=== PATIENT | male | born 1985 | race Caucasian/White ===

== ENCOUNTER 2021-01-26 04:34 | Emergency (ER) | payer MEDICAID ==
[2021-01-26] MEDS ORDERED: Tamsulosin 0.4 MG Cap.ER PO ONE (05:01)
[2021-01-26] MEDS ORDERED: HYDROmorphone 1 MG/ML Syringe IVPUSH ONE (05:01)
[2021-01-26] MEDS ORDERED: Ondansetron 4 MG/2 ML SDV IVPUSH ONE (05:01)
[2021-01-26] MEDS ORDERED: Ketorolac 30 MG/ML SDV IVPUSH STA (05:01)
--- NOTE | 2021-01-26 05:08 | EDM.PDOC ---
ED HPI GENERAL MEDICAL PROBLEM - General Chief Complaint: Genitourinary Problem Stated Complaint: BACK PAIN/ STOMACH PAIN Time Seen by Provider: 01/26/21 04:49 Source of Information: Reports: Patient History Limitations: Reports: No Limitations - History of Present Illness INITIAL COMMENTS - FREE TEXT/NARRATIVE: Mr. Gray is a very pleasant 35-year-old gentleman who now presents the ED stating that he was woken with sudden-onset lower right flank pain, radiating to his right lower quadrant, around 03:00 this morning. He describes the pain as sharp in character. He states that it is constant. He states that he feels a bit better sitting up, otherwise, he has not identified any modifiers. He also reports difficulty urinating, in that his urine output is low, however, he denies having gross hematuria, dysuria, or urinary frequency. No prior similar symptoms. The patient did not take any [id number] or home remedies prior to coming to the ED. Here in the ED, the patient's initial BP is found to be slightly elevated at 134/100, with bradycardia of 51 bpm. He is afebrile, saturating 97% on room air. He appears to be uncomfortable, but is in no acute distress. Prior to this morning, the patient denies having a recent fever, chills, sore throat, ear pain, nasal or sinus congestion, cough, dyspnea, chest pain, palpitations, nausea, vomiting, constipation, diarrhea, abdominal pain, urinary symptoms, recent weight gain or weight loss, recent bloody bowel movements or black bowel movements, recent joint aches, headaches, or rashes. The patient does not have a PCP. He has not received a COVID vaccination. Right Lower Back Pain Score (Numeric/FACES): 7 - Related Data Allergies Allergy/AdvReac Type Severity Reaction Status Date / Time No Known Allergies Allergy Verified 01/26/21 04:43 Home Meds: Home Meds Acetaminophen/oxyCODONE [Percocet 325-5 MG] 1 - 2 tab PO Q6H PRN #20 tab 01/26/21 [Rx] Ondansetron [Zofran ODT] 1 tab PO Q8H PRN #10 tab.dis 01/26/21 [Rx] Tamsulosin [Flomax] 1 cap PO QAM PRN #10 cap.er 01/26/21 [Rx] Past Medical History - Past Surgical History HEENT Surgical History: Reports: Oral Surgery (dental extractions) Social & Family History - Tobacco Use Tobacco Use Status *Q: Never Tobacco User - Alcohol Use Alcohol Use History: Yes Alcohol Use Frequency: Socially - Recreational Drug Use Recreational Drug Use: No - Living Situation & Occupation Living situation: Reports: , with Spouse, with Family (2 kids) Occupation: Employed (Construction) ED ROS GENERAL - Review of Systems Review Of Systems: Comprehensive ROS is negative, except as noted in HPI. ED EXAM, RENAL/ - Physical Exam Exam: See Below Exam Limited By: No Limitations General Appearance: Alert, WD/WN, Mild Distress (appears uncomfortable) Eye Exam: Bilateral Eye: EOMI, Normal Inspection Ears: Normal External Exam, Hearing Grossly Normal Nose: Normal Inspection Throat/Mouth: Normal Inspection, Normal Lips, Normal Voice, No Airway Compromise Head: Atraumatic, Normocephalic Neck: Normal Inspection, Full Range of Motion Respiratory/Chest: No Respiratory Distress, Lungs Clear, Normal Breath Sounds, No Accessory Muscle Use Cardiovascular: Normal Peripheral Pulses, Regular Rate, Rhythm, No Edema, No Gallop, No JVD, No Murmur, No Rub GI/Abdominal: Normal Bowel Sounds, Soft, Non-Tender (including the RLQ), No Organomegaly, No Distention, No Abnormal Bruit, No Mass Back Exam: Normal Inspection, Full Range of Motion. No: CVA Tenderness (L), CVA Tenderness (R) Extremities: Normal Inspection, Normal Range of Motion, No Pedal Edema, Normal Capillary Refill Neurological: Alert, Oriented, Normal Cognition, No Motor/Sensory Deficits Psychiatric: Normal Affect Skin Exam: Warm, Dry, Intact, Normal Color, No Rash Course - Vital Signs Last Recorded V/S: Last Vital Signs Temp 35.2 C L 01/26/21 04:44 Pulse 51 L 01/26/21 04:44 Resp 15 01/26/21 04:44 BP 134/100 H 01/26/21 04:44 Pulse Ox 97 01/26/21 04:44 - Orders/Labs/Meds Orders: Active Orders 24 hr Category Date Time Status Strain Urine [RC] ASDIRECTED Care 01/26/21 05:02 Active Strain Urine [RC] ASDIRECTED Care 01/26/21 06:58 Active Abdomen Pelvis wo Cont [CT] Stat Exams 01/26/21 05:00 Taken Sodium Chloride 0.9% [Normal Saline] 1,000 ml Med 01/26/21 05:15 Active IV ASDIRECTED Medication Orders Sodium Chloride (Normal Saline) 1,000 mls @ 150 mls/hr IV ASDIRECTED CHERELLE Last Admin: 01/26/21 05:08 Dose: 150 mls/hr Documented by: MEAGHAN Labs: Laboratory Tests 01/26/21 01/26/21 Range/Units 04:53 05:27 Urine Color Yellow (Yellow) Urine Appearance Clear (Clear) Urine pH 6.0 (5.0-8.0) Ur Specific [place] > or = 1.030 (1.005-1.030) Urine Protein Trace H (Negative) Urine Glucose (UA) Negative (Negative) Urine Ketones Negative (Negative) Urine Occult Blood Negative (Negative) Urine Nitrite Negative (Negative) Urine Bilirubin Negative (Negative) Urine Urobilinogen 0.2 (0.2-1.0) Ur Leukocyte Esterase Negative (Negative) Urine RBC Not seen (0-5) /hpf Urine WBC Not seen (0-5) /hpf Ur Squamous Epith Cells Not seen (0-5) /hpf Urine Bacteria Rare (FEW) /hpf Urine Mucus Few (FEW) /hpf SARS-CoV-2 RNA (AVERY) Negative (NEGATIVE) Meds: Medications Generic Name Dose Route Start Last Admin Trade Name Flavia PRN Reason Stop Dose Admin Sodium Chloride 1,000 mls @ 150 mls/hr 01/26/21 05:15 01/26/21 05:08 Normal Saline IV 150 mls/hr ASDIRECTED CHERELLE Administration Discontinued Medications Generic Name Dose Route Start Last Admin Trade Name Freq PRN Reason Stop Dose Admin Hydromorphone HCl 1 mg 01/26/21 05:01 01/26/21 05:11 Hydromorphone 1 Mg/Ml Syringe IVPUSH 01/26/21 05:02 1 mg ONETIME ONE Administration Ketorolac Tromethamine 30 mg 01/26/21 05:01 01/26/21 05:09 Ketorolac 30 Mg/Ml Sdv IVPUSH 01/26/21 05:02 30 mg ONETIME STA Administration Ondansetron HCl 4 mg 01/26/21 05:01 01/26/21 05:08 Ondansetron 4 Mg/2 Ml Sdv IVPUSH 01/26/21 05:02 4 mg ONETIME ONE Administration Tamsulosin HCl 0.4 mg 01/26/21 05:01 01/26/21 05:08 Tamsulosin 0.4 Mg Cap.Er PO 01/26/21 05:02 0.4 mg ONETIME ONE Administration - Re-Assessments/Exams Free Text/Narrative Re-Assessment/Exam: 01/26/21 05:03 As above, the patient was woken with sudden-onset lower right flank pain radi ating around to his right lower quadrant around 03:00 this morning. The pain has been constant, and he reports that he has difficulty urinating, although he denies dysuria. His physical exam is unremarkable, including no right CVA tenderness or tenderness to his abdomen. His history is compelling for a ureterolith, therefore I have ordered a work-up that includes a urinalysis and a CT of the abdomen and pelvis without contrast. In case the patient needs to be transferred to an outside facility, I have also ordered a swab for the SARS-CoV-2 virus. In the meantime, the patient will be given some IV Dilaudid, oral tamsulosin, IV fluid, IV Toradol, and IV Zofran. 01/26/21 05:52 The patient's urinalysis is unremarkable. 01/26/21 06:28 Cursory review of the CT of the abdomen and pelvis without contrast appears to demonstrate a small stone in the distal right ureter, a couple of centimeters above the UVJ. Formal read per the Radiologist pending. 01/26/21 06:50 The patient's swab for the SARS-CoV-2 virus is negative. 01/26/21 07:05 CT of the abdomen and pelvis without contrast is read by [facility] as: 1. 2.4 millimeter distal RIGHT ureteral calculus causes dilation of the RIGHT u reter, and RIGHT collecting system. The RIGHT kidney is edematous and there is RIGHT perirenal stranding. 2. Borderline splenomegaly 13.7 cm. Differential diagnosis of splenomegaly is lymphoma/leukemia, mononucleosis, hemolytic anemia, portal hypertension. 01/26/21 07:12 Test results discussed with the patient. I will discharge him home with the recommendation that he stay adequately hydrated and strain all of his urine. He is to take [id number] ibuprofen on a regular basis, and I have prescribed him Percocet, tamsulosin, and Zofran, in addition. I will refer him to Dr. Childs in the event that he still has pain after 1 week. We also discussed the CT report of borderline splenomegaly. I will refer him to the clinic for further evaluation. Departure - Departure Time of Disposition: 07:16 Disposition: Home, Self-Care 01 Condition: Good Clinical Impression: Ureterolithiasis - Discharge Information *PRESCRIPTION DRUG MONITORING PROGRAM REVIEWED*: Not Applicable *COPY OF PRESCRIPTION DRUG MONITORING REPORT IN PATIENT [place]ELASQUEZ: Not Applicable Prescriptions: Tamsulosin [Flomax] 1 cap PO QAM PRN #10 cap.er PRN Reason: Pain Acetaminophen/oxyCODONE [Percocet 325-5 MG] 1 - 2 tab PO Q6H PRN #20 tab PRN Reason: Pain (Severe 7-10) Ondansetron [Zofran ODT] 1 tab PO Q8H PRN #10 tab.dis PRN Reason: Nausea/Vomiting Instructions: Kidney Stones, [id number] Referrals: Martin Childs MD [Ordering Only Provider] - PCP,None [Primary Care Provider] - Ángela Armenta NP [Nurse Practitioner] - Forms: ED Department Discharge Additional Instructions: You were seen in the emergency room after developing sudden-onset lower right back pain radiating to your lower right abdomen this morning. Work-up in the ER included a urinalysis, a swab for the SARS-CoV-2 virus, and a CT of your abdomen and pelvis. Your urinalysis was unremarkable. You do not have a urinary tract infection. Your swab for the SARS-CoV-[address] scan confirmed that you have a 2.4 mm stone in your distal right ureter, just above your bladder. This is the cause of your symptoms. Based on the size and location of the stone, you will most likely pass it on your own. We recommend you take [id number] ibuprofen, 3 to 4 tablets (600-800 mg) up to every 8 hours, with food, [id number] initially, as needed for pain. You have given a prescription for the opioid pain reliever Percocet. You may take 1 to 2 tablets of Percocet up to every 6 hours as needed for pain not relieved by ibuprofen. If you take Percocet, do not drive or operate heavy machinery for 12 hours afterwards. Percocet may cause constipation, so consider taking a stool softener. You have been started on the anti-spasm medicine tamsulosin (Flomax), and a prescription has been provided to you. Take 1 tablet of tamsulosin starting tomorrow morning, 01/27/2021, as needed for pain. You has been prescribed the antinausea medicine Zofran ODT. You may dissolve 1 tablet of Zofran ODT on your tongue up to every 8 hours, as needed for naus ea/vomiting. Stay adequately hydrated. It does not really matter what type of fluid you drink. Strain all of your urine. If you capture the stone, take it to a doctor for analysis. If you are still having pain after 1 week, please follow-up with the urologist Dr. Martin Childs, in [place]. As discussed, the CT scan also found that your spleen is somewhat large. We recommend that you follow-up with Ángela Armenta NP, or one of the other providers in the clinic, for further evaluation. If any other problems, please do not hesitate to return to the ER. Sepsis Event Note (ED) - Evaluation Sepsis Screening Result: No Definite Risk - Focused Exam Vital Signs: Vital Signs Temp Pulse Resp BP Pulse Ox 01/26/21 04:44 35.2 C L 51 L 15 134/100 H 97 - My Orders Last 24 Hours: My Active Orders 01/26/21 05:00 Abdomen Pelvis wo Cont [CT] Stat 01/26/21 05:02 Strain Urine [RC] ASDIRECTED 01/26/21 05:15 Sodium Chloride 0.9% [Normal Saline] 1,000 ml IV ASDIRECTED 01/26/21 06:58 Strain Urine [RC] ASDIRECTED - Assessment/Plan Last 24 Hours: My Active Orders 01/26/21 05:00 Abdomen Pelvis wo Cont [CT] Stat 01/26/21 05:02 Strain Urine [RC] ASDIRECTED 01/26/21 05:15 Sodium Chloride 0.9% [Normal Saline] 1,000 ml IV ASDIRECTED 01/26/21 06:58 Strain Urine [RC] ASDIRECTED
[2021-01-26] MEDS ORDERED: Sodium Chloride 0.9% 1,000 ML IV SCH (05:15)
--- NOTE | 2021-01-26 09:07 | CT ---
CT abdomen and pelvis Technique: Multiple axial sections were obtained from above the dome of the diaphragm inferiorly through the pubic symphysis. Intravenous and oral contrast were not utilized. Study has been performed as ureteral stone protocol. Reconstructed coronal and sagittal images were obtained. Findings: Dilated right renal pelvis and right ureter are seen. These findings are caused by a distal right ureteral stone measuring 4.2 mm which is located approximately 4-5 cm proximal to the UVJ. Right kidney shows an additional nonobstructing stone measuring 4 mm. Left kidney shows two small nonobstructing calculi with the largest measuring 3 mm. Visualized lung bases show nothing acute. Noncontrast appearance of the liver appears within normal limits. Spleen size is slightly prominent with a length of 14.2 cm, etiology is not seen. Adrenal glands show no nodule. No abnormality is appreciated within the pancreas. Gallbladder contains no calcified gallstones. Abdominal aorta shows no aneurysm. No retroperitoneal adenopathy or mesenteric abnormalities are seen. Appendix is seen which is normal in size. No pelvic mass or adenopathy is seen. Bone window settings were reviewed. Very slight degenerative change is noted within the spine. No acute osseous abnormality is appreciated. Impression: 1. Distal right ureteral stone occurring proximal to the UVJ and measuring 4.2 mm. Two small nonobstructing calculi are noted within the left kidney. 2. Slightly enlarged spleen of questionable etiology. 3. Nothing acute is otherwise appreciated on noncontrast CT study of the abdomen and pelvis. Diagnostic code #3 I agree with preliminary report from [facility], finalized on 01/26/21, 8:03 AM CDT, code 1
== END 2021-01-26 07:45 | disposition home or self-care (01) ==
LOC: JD.ED 04:34
DX: N20.1 Calculus of ureter (principal); Z20.822 Contact with and (suspected) exposure to COVID-19
CPT/HCPCS: 74176; 81001; 87635; 96374; 96375; 99284; A9270; J1170; J1885; J2405; J7030; U0002